=== PATIENT | female | born 1955 | race Caucasian/White ===

== ENCOUNTER → 2017-09-04 | Outpatient (CLI) | payer SELFPAY ==
[~2017-09-04] MED LIST: ALBU90OI INH; ALPR.5 PO; AMLO10 PO; ASCO1ER PO; ASPI81EC; ASPI81EC PO; AZIT250 PO; AZOR PO; BUDE200IP INH; Bystolic10 MG PO; CLON.1 PO; CLON.3 PO; CLON.5 PO; CYAN100 PO; FEXO180 PO; FISH1000 PO; FLUO20 PO; HYDACE5 PO; HYDACE5325 PO; LISI5 PO; LORA.5 PO; LOSA50 PO; METO50 PO; MULVITMINE PO; NITRSPRAY SL; PARO20 PO; PROP60; PROP80ER PO; RAMI5; RANI150; RXCLIN PO; SULTRIDS PO; TOLT4 PO; VERA240ER
[2017-09-04 13:29] LABS: Anion Gap 6 mmol/L (6-16); Blood Urea Nitrogen 13 mg/dL (8-24); Bun/Creatinine Ratio 20.7 (12.0-20.0); CO2, Blood 27 mmol/L (21-32); Calcium, Blood 9.9 mg/dL (8.5-10.1); Chloride, Blood 110 mmol/L (98-108); Creatinine, Blood 0.63 mg/dL (0.40-1.00); Glomerular Filtration Rate >60 (60-); Glucose, Blood 89 mg/dL (70-99); Potassium, Blood 4.1 mmol/L (3.5-5.5); Sodium, Blood 143 mmol/L (136-145)
== END | disposition home or self-care (01) ==
LOC: LAB SHORT 10:56 → LAB 10:56
PROVIDERS: Internal Medicine Hematology & Oncology
DX: C50.411 Malignant neoplasm of upper-outer quadrant of right female breast (principal); M85.80 Other specified disorders of bone density and structure, unspecified site; Z17.0 Estrogen receptor positive status [ER+]; Z79.811 Long term (current) use of aromatase inhibitors; Z79.83 Long term (current) use of bisphosphonates
CPT/HCPCS: 80048

== ENCOUNTER 2018-07-16 19:59 | Emergency (ER) | payer OTHER ==
[~2018-07-16] VITALS: Ht 167.6 cm; Wt 81.7 kg
[2018-07-16] MEDS ORDERED: ANAS1 PO (20:22)
[2018-07-16] MEDS ORDERED: MONT10T (20:22)
[2018-07-16] MEDS ORDERED: Percocet 5-3251 EACH PO (23:20)
[2018-07-16] MEDS ORDERED: IBUP400 PO (23:20)
== END 2018-07-17 00:21 | disposition home or self-care (01) ==
LOC: ER 19:59
DX: S52.531A Colles' fracture of right radius, initial encounter for closed fracture (principal); I10 Essential (primary) hypertension; F17.200 Nicotine dependence, unspecified, uncomplicated; Z88.5 Allergy status to narcotic agent; Z91.013 Allergy to seafood; Z88.8 Allergy status to other drugs, medicaments and biological substances; Z79.899 Other long term (current) drug therapy; W00.0XXA Fall on same level due to ice and snow, initial encounter
CPT/HCPCS: 73090; 76000; J7030

== ENCOUNTER 2018-07-19 10:47 | Day surgery (SDC) | payer OTHER ==
[~2018-07-19] VITALS: Ht 167.6 cm; Wt 81.7 kg
[~2018-07-19 10:47] MED LIST changes: +ANAS1 PO; +IBUP400 PO; +MONT10T; +Percocet 5-3251 EACH PO
--- NOTE | 2018-07-19 12:10 | NUR ---
History, Chart, Medications and Allergies reviewed before start of procedure. LUNGS DECREASED IN BASES, CLEARS WITH COUGH. Patient States Post-Procedure ride home has been arranged.
--- NOTE | 2018-07-19 16:13 | NUR ---
Patient States Post-Procedure ride home has been arranged. Discharge instructions reviewed with patient. Patient verbalizes understanding. Copy given to patient to take home.
== END 2018-07-19 16:19 | disposition home or self-care (01) ==
LOC: ORSCMMR 10:47
PROVIDERS: Orthopaedic Surgery
PROC: 0PSH04Z Reposition Right Radius with Internal Fixation Device, Open Approach (ICD-10-PCS; principal; 2018-07-19 12:30)
DX: S52.502A Unspecified fracture of the lower end of left radius, initial encounter for closed fracture (principal); W18.30XA Fall on same level, unspecified, initial encounter; I10 Essential (primary) hypertension; J44.9 Chronic obstructive pulmonary disease, unspecified; F17.210 Nicotine dependence, cigarettes, uncomplicated; F41.8 Other specified anxiety disorders; Z79.899 Other long term (current) drug therapy
CPT/HCPCS: C1713; J0690; J1100; J1885; J2250; J2405; J3010; J7120

== ENCOUNTER 2019-06-10 07:28 | Day surgery (SDC) | payer OTHER ==
[~2019-06-10] VITALS: Ht 170.2 cm; Wt 79.2 kg
[~2019-06-10 07:28] MED LIST changes: +ALLEGRA ALLERG180 MG; +Allegra-D 12 H1 EACH
--- NOTE | 2019-06-10 08:31 | NUR ---
Ambulatory in Day SurgeryPatient states colon prep results clear. History, Chart, Medications and Allergies reviewed before start of procedure.Lungs clear T/O to Auscultation. Pre-Op teaching done. Pt verbalizes understanding. Patient States Post-Procedure ride home has been arranged. PATIENT RECEIVED A TAP WATER TAB PER DR. LA.
--- NOTE | 2019-06-10 08:41 | NUR ---
06/10/19 0841 Karo Downey History, Chart, Medications and Allergies reviewed before start of procedure. Patient confirms NPO status and agrees with scheduled surgery. PATIENT DETERMINED TO BE ASA APPROPRIATE FOR PROPOFOL SEDATION PRIOR TO START OF PROCEDURE BY DR. LA. 3-LEAD EKG REVIEWED WITH PHYSICIAN PRIOR TO START OF PROCEDURE. MONITOR INTACT WITH CONTINUOUS PULSE OXIMETRY AND INTERMITTENT BP.
== END 2019-06-10 09:34 | disposition home or self-care (01) ==
LOC: ORSCMMR 07:28 → ORD 08:30 → ORSCMMR 09:34
PROVIDERS: Internal Medicine Gastroenterology
PROC: 0DBN8ZX Excision of Sigmoid Colon, Via Natural or Artificial Opening Endoscopic, Diagnostic (ICD-10-PCS; principal; 2019-06-10 08:30)
PROC: 0DBM8ZX Excision of Descending Colon, Via Natural or Artificial Opening Endoscopic, Diagnostic (ICD-10-PCS; principal; 2019-06-10 08:30)
DX: Z12.11 Encounter for screening for malignant neoplasm of colon (principal); Z86.010 Personal history of colon polyps; K63.5 Polyp of colon; K64.8 Other hemorrhoids; J44.9 Chronic obstructive pulmonary disease, unspecified; I10 Essential (primary) hypertension; Z79.899 Other long term (current) drug therapy; F17.210 Nicotine dependence, cigarettes, uncomplicated
CPT/HCPCS: 88305; J2704; J7120

== ENCOUNTER → 2021-02-11 | Outpatient (CLI) | payer MEDICARE ==
[2021-02-11 12:21] LABS: BASOPHILS ABSOLUTE AUTO 0.01 K/mm3 (0.00-0.23); BASOPHILS PERCENT AUTO 0 % (0-2); EOSINOPHILS PERCENT AUTO 0 % (0-6); Hematocrit 41.5 % (33.0-51.0); Hemoglobin 14.4 g/dL (11.5-16.0); IMMATURE GRAN ABSOLUTE AUTO 0.08 K/mm3 (0.00-0.10); IMMATURE GRAN PERCENT AUTO 1 % (0-1); LYMPHOCYTES ABSOLUTE AUTO 0.76 K/mm3 (0.84-5.20); LYMPHOCYTES PERCENT AUTO 9 % (21-46); MONOCYTES ABSOLUTE AUTO 0.37 K/mm3 (0.16-1.47); MONOCYTES PERCENT AUTO 4 % (4-13); Mean Corpuscular HGB 31.1 pg (26.0-34.0); Mean Corpuscular HGB Conc 34.7 g/dL (31.5-36.5); Mean Corpuscular Volume 90 fL (80-100); Mean Platelet Volume 10.6 fL (9.1-12.4); NEUTROPHILS ABSOLUTE AUTO 7.57 K/mm3 (1.96-9.15); NEUTROPHILS PERCENT AUTO 86 % (41-73); Platelet Count 266 K/mm3 (150-400); RDW Coefficient Variation 13.4 % (11.7-14.2); RDW Standard Deviation 43.9 fL (35.1-46.3); Red Blood Cell Count 4.63 M/mm3 (3.80-5.20); White Blood Cell Count 8.79 K/mm3 (4.00-11.30)
[2021-02-11 12:31] LABS: Alanine Aminotransfer (ALT/SGP 49 U/L (12-78); Albumin, Blood 3.2 g/dL (3.4-5.0); Albumin/Globulin Ratio 0.7 (0.8-1.8); Alk Phos 99 U/L (40-126); Anion Gap 16 mmol/L (6-16); Aspartate Aminotrans (AST/SGOT 50 U/L (12-37); Bilirubin, Total 0.3 mg/dL (0.1-1.0); Blood Urea Nitrogen 13 mg/dL (8-24); Bun/Creatinine Ratio 14.6 (12.0-20.0); CO2, Blood 22 mmol/L (21-32); Calcium, Blood 8.5 mg/dL (8.5-10.1); Chloride, Blood 101 mmol/L (98-108); Creatinine, Blood 0.89 mg/dL (0.40-1.00); Globulin, Blood 4.3 g/dL (2.2-4.0); Glomerular Filtration Rate >60 (60-); Glucose, Blood 105 mg/dL (70-99); Potassium, Blood 3.7 mmol/L (3.5-5.5); Sodium, Blood 139 mmol/L (136-145); Total Protein, Blood 7.5 g/dL (6.4-8.2)
== END | disposition home or self-care (01) ==
LOC: LAB 12:16 → LAB SHORT 12:16
PROVIDERS: Physician Assistant
DX: U07.1 COVID-19 (principal); R09.02 Hypoxemia
CPT/HCPCS: 80053; 85025; 85379

== ENCOUNTER → 2024-12-18 | Outpatient (CLI) | payer MEDICARE, OTHER ==
[~2024-12-18] MED LIST changes: -ALLEGRA ALLERG180 MG; +ALLEGRA ALLERG180 MG PO; +ASPI81CH PO; +ATOR40TA PO; -Allegra-D 12 H1 EACH; +CLOP75 PO; +CVS ALLERGY RL1 EAC1 PO; +GABA800 PO; +Hydrochlorothia50 MG PO; +MASOPHEN325 M4 PO; +TOPI25 PO
[2024-12-18 20:39] LABS: Campylobacter Sp Not Detected (NOT DETECT); E. Coli O157 Not Detected (NOT DETECT); Enteroaggregative E. coli-EAEC Not Detected (NOT DETECT); Enteropathogenic E. coli-EPEC Not Detected (NOT DETECT); Enterotoxigenic E. coli-ETEC Not Detected (NOT DETECT); Salmonella Sp Not Detected (NOT DETECT); Shiga Toxin-prod E. coli-STEC Not Detected (NOT DETECT); Shigella/Enteroin E. coli-EIEC Not Detected (NOT DETECT); Vibrio Sp Not Detected (NOT DETECT)
== END | disposition home or self-care (01) ==
LOC: LAB 14:50 → LAB SHORT 14:50 → LAB FUT 12-12 13:45
PROVIDERS: Internal Medicine Gastroenterology
DX: R19.7 Diarrhea, unspecified (principal)
CPT/HCPCS: 87507

== ENCOUNTER 2025-03-01 14:29 | Observation (INO) | payer MEDICARE, OTHER ==
[~2025-03-01] VITALS: Ht 167.6 cm; Wt 76.3 kg
[2025-03-01] MEDS ORDERED: NS 1,000 ML IV SCH ×2 (14:35→18:35)
[2025-03-01 14:56] LABS: Source, Urine Clean Catch
[2025-03-01] MEDS ORDERED: Diazepam 5 MG / ML 2ML SYR IV ONE (15:00)
[2025-03-01 15:04] LABS: Bilirubin, Urine Neg (Neg); Glucose Qualitative, Urine Neg (Neg); Ketones, Urine Neg (Neg); Leukocyte Esterase, Urine Neg (Neg); Protein, Urine Neg (Neg); Specific Gravity, Urine 1.005 (1.003-1.022); Urobilinogen, Urine NORM (Normal)
[2025-03-01 15:05] LABS: BASOPHILS ABSOLUTE AUTO 0.05 K/mm3 (0.00-0.23); BASOPHILS PERCENT AUTO 1 % (0-2); EOSINOPHILS ABSOLUTE AUTO 0.13 K/mm3 (0.00-0.68); EOSINOPHILS PERCENT AUTO 2 % (0-6); Hematocrit 40.3 % (33.0-51.0); Hemoglobin 13.4 g/dL (11.5-16.0); IMMATURE GRAN ABSOLUTE AUTO 0.01 K/mm3 (0.00-0.10); IMMATURE GRAN PERCENT AUTO 0 % (0-1); LYMPHOCYTES ABSOLUTE AUTO 0.81 K/mm3 (0.84-5.20); LYMPHOCYTES PERCENT AUTO 10 % (21-46); MONOCYTES ABSOLUTE AUTO 0.57 K/mm3 (0.16-1.47); MONOCYTES PERCENT AUTO 7 % (4-13); Mean Corpuscular HGB Conc 33.3 g/dL (31.5-36.5); Mean Corpuscular Volume 87 fL (80-100); NEUTROPHILS ABSOLUTE AUTO 6.45 K/mm3 (1.96-9.15); NEUTROPHILS PERCENT AUTO 81 % (41-73); NRBC ABSOLUTE 0.00 K/mm3 (0.00-0.02); NRBC Auto 0.0 /100 WBC (0.0-0.2); Platelet Count 329 K/mm3 (150-400); RDW Coefficient Variation 17.9 % (11.7-14.2); RDW Standard Deviation 57.1 fL (35.1-46.3)
[2025-03-01 15:16] LABS: Color, Urine Pale Yellow (P-Yellow)
[2025-03-01 15:50] LABS: Anion Gap 7.0 mmol/L (3-11); Blood Urea Nitrogen 11.0 mg/dL (8-24); CO2, Blood 24.0 mmol/L (21-32); Calcium, Blood 8.7 mg/dL (8.5-10.1); Chloride, Blood 112.0 mmol/L (98-108); Creatinine, Blood 0.6 mg/dL (0.40-1.00); Glucose, Blood 119.0 mg/dL (70-99); Magnesium, Blood 2.0 mg/dL (1.6-2.4); Potassium, Blood 3.2 mmol/L (3.5-5.5); Sodium, Blood 140.0 mmol/L (136-145); Thyroid Stimulating Hormone 0.016 uIU/mL (0.360-4.800)
[2025-03-01] MEDS ORDERED: Prochlorperazine Edisylate 10 mg Vial IV ONE (17:45)
[2025-03-01] MEDS ORDERED: FLU VACC TS2025(65UP)/MF59C/PF 45 MCG/0.5 ML SYRINGE IM SCH (18:35)
[2025-03-01] MEDS ORDERED: Metoclopramide HCl 5MG / ML 2ML Vial IV PRN (18:35)
[2025-03-01] MEDS ORDERED: Albuterol 2.5 MG/3 ML VIAL INH PRN (18:45)
[2025-03-01 21:49] VITALS: BP 141/73
[2025-03-02 00:07] VITALS: BP 151/91
--- NOTE | 2025-03-02 02:19 | NUR ---
MD NOTIFICATION NOTE: ROUND ON PATIENT, REPORTS HEADACHE 12/28. PATIENT STATED "I USUALLY TAKES TOMAPAX AT HOME, BUT IT DOES NOT LAST, SEEMS NOT BEEN WORKING LATELY." PATIENT RECEIVED HER TOMAPAX SCHEDULED DOSE AT 2211. NOTIFIED DR[address] CASA velásquez THIS CONCERN. RECEIVED ORDER TO GIVE TYLENOL 650 MG PO EVERY SIX HRS FOR PAIN.
[2025-03-02 04:24] VITALS: BP 124/68
--- NOTE | 2025-03-02 04:52 | NUR ---
SHIFT SUMMARY: PATIENT A/OX4, PLEASANT AND COOPERATIVE c CARE, CALLS APPROPRIATELY AND MAKE NEEDS KNOWN. PATIENT DENIES CP/PRESSURE, DIZZINESS, SOB, N/V. PATIENT MEDICATED FOR HEADACHE PER EMAR c MOD EFFECT. PATIENT ON TELE, SR IN 80'S c OCCASIONAL PVC. PATIENT RECEIVED OT DOSE PO POTASSIUM AND 1L OF NS PER ORDER. PATIENT CONTINENT OF BLADDER, AMBULATES TO BATHROOM c SBA. VITAL SIGNS REVIEWED. BED IN LOWEST POSITION. CALL LIGHT IN REACH.
[2025-03-02 05:14] LABS: Hematocrit 36.4 % (33.0-51.0); Hemoglobin 11.8 g/dL (11.5-16.0); Mean Corpuscular HGB Conc 32.4 g/dL (31.5-36.5); Mean Corpuscular Volume 88 fL (80-100); NRBC ABSOLUTE 0.00 K/mm3 (0.00-0.02); NRBC Auto 0.0 /100 WBC (0.0-0.2); Platelet Count 273 K/mm3 (150-400); RDW Coefficient Variation 18.0 % (11.7-14.2); RDW Standard Deviation 58.1 fL (35.1-46.3)
[2025-03-02 05:38] LABS: Anion Gap 9.0 mmol/L (3-11); Blood Urea Nitrogen 9.0 mg/dL (8-24); CO2, Blood 20.0 mmol/L (21-32); Calcium, Blood 8.3 mg/dL (8.5-10.1); Chloride, Blood 114.0 mmol/L (98-108); Creatinine, Blood 0.53 mg/dL (0.40-1.00); Glucose, Blood 119.0 mg/dL (70-99); Potassium, Blood 3.6 mmol/L (3.5-5.5); Sodium, Blood 139.0 mmol/L (136-145)
[2025-03-02 07:25] VITALS: BP 140/72
--- NOTE | 2025-03-02 07:28 | NUR ---
RECEIVED REPORT FROM NIGHT NURSE, ASSUMING CARE OF PATIENT AT THIS TIME. PATIENT RESTING IN BED, DENIES NEEDS AT THIS TIME
[2025-03-02] MEDS ORDERED: Enoxaparin 40 MG/0.4 ML SYR SC SCH (09:00)
[2025-03-02] MEDS ORDERED: Metoclopramide HCl 5MG / ML 2ML Vial IV STA (12:15)
[2025-03-02 14:38] VITALS: BP 150/86
[2025-03-02] MEDS ORDERED: Ketorolac Tromethamine 30mg Vial IV ONE (15:00)
--- NOTE | 2025-03-02 18:38 | NUR ---
END OF SHIFT PATIENT IND IN ROOM, ABLE TO MAKE NEEDS KNOWN, A&OX4. PATIENT TO MRI AT 1840, PLAN DC TOMORROW. HEADACHE TODAY, TORADOL HELPED. PATIENT HAD FAMILY AT BEDSIDE, DISCUSSED PLAN, DENIES NEEDS AT THIS TIME,
[2025-03-02 19:24] VITALS: BP 146/83
[2025-03-02 23:44] VITALS: BP 141/81
[2025-03-03 03:33] VITALS: BP 155/80
--- NOTE | 2025-03-03 04:27 | NUR ---
SHIFT SUMMARY PT A&OX4. ABLE TO MAKE NEEDS KNOWN. RESTED COMFORTABLY IN BED THROUGHOUT THE NIGHT. DENIES SOB OR DIZZINESS AT REST. CURRENTLY RESTING IN BED AT LOWEST POSITION WITH CALL LIGHT WITHIN REACH.
[2025-03-03 07:16] VITALS: BP 147/88
[2025-03-03] MEDS ORDERED: Ketorolac Tromethamine 30mg Vial IV ONE (09:55)
[2025-03-03] MEDS ORDERED: DRAMAMINE25 M1 PO (11:57)
[2025-03-03] MEDS ORDERED: METO5A PO (11:58)
--- NOTE | 2025-03-03 14:03 | NUR ---
DISCHARGE NOTE PATIENT DISCHARGE HOME WITH DAUGHTER, WHO SHE LIVES WITH. D/C MEDICATIONS AND INSTRUCTIONS DISCUSSED WITH FAMILY AND PATIENT. THEY VERBALIZED UNDERSTANDING. IV D/C'D. PATIENT TAKEN OUT BY WHEEL CHAIR TO FAMILY.
== END 2025-03-03 14:09 | disposition home or self-care (01) ==
LOC: ER 14:29 → MEDS 14:30 → ERHOLD 14:30 → MEDS 21:41
PROVIDERS: Emergency Medicine; Nurse Practitioner Acute Care; ADMIT Internal Medicine
DX: R42 Dizziness and giddiness (principal); J44.9 Chronic obstructive pulmonary disease, unspecified; I10 Essential (primary) hypertension; E78.5 Hyperlipidemia, unspecified; E87.6 Hypokalemia; I65.22 Occlusion and stenosis of left carotid artery; G43.909 Migraine, unspecified, not intractable, without status migrainosus; Z88.5 Allergy status to narcotic agent; Z91.0120 Allergy to eggs, unspecified; Z91.013 Allergy to seafood; Z91.018 Allergy to other foods
CPT/HCPCS: 36415; 70450; 70496; 70498; 70551; 71045; 80048; 81003; 82607; 83735; 84439; 84443; 85025; 85027; 93005; 93010; 94760; 96361; 96372; 96374-59; 96375; 96375-59; 96376; 97112; 97116; 97162; 97166; 97530; 99285-25; A9270; G0378; J0780; J1650; J1885; J2765; J3360; J7030; Q9967

== ENCOUNTER 2025-04-30 11:06 | Emergency (ER) | payer OTHER ==
[~2025-04-30] VITALS: Ht 167.6 cm; Wt 77.1 kg
[~2025-04-30 11:06] MED LIST changes: +DRAMAMINE25 M1 PO; +METO5A PO
[2025-04-30] MEDS ORDERED: PAROXETINE 10 MG (11:16)
[2025-04-30] MEDS ORDERED: OXYCODONE-ACET1 EAC3 (11:16)
[2025-04-30] MEDS ORDERED: NS 1,000 ML IV SCH (11:35)
[2025-04-30 11:47] LABS: BASOPHILS ABSOLUTE AUTO 0.06 K/mm3 (0.00-0.23); BASOPHILS PERCENT AUTO 1 % (0-2); EOSINOPHILS ABSOLUTE AUTO 0.29 K/mm3 (0.00-0.68); EOSINOPHILS PERCENT AUTO 6 % (0-6); Hematocrit 39.4 % (33.0-51.0); Hemoglobin 13.2 g/dL (11.5-16.0); IMMATURE GRAN ABSOLUTE AUTO 0.01 K/mm3 (0.00-0.10); IMMATURE GRAN PERCENT AUTO 0 % (0-1); LYMPHOCYTES ABSOLUTE AUTO 1.17 K/mm3 (0.84-5.20); LYMPHOCYTES PERCENT AUTO 22 % (21-46); MONOCYTES ABSOLUTE AUTO 0.45 K/mm3 (0.16-1.47); MONOCYTES PERCENT AUTO 9 % (4-13); Mean Corpuscular HGB Conc 33.5 g/dL (31.5-36.5); Mean Corpuscular Volume 91 fL (80-100); NEUTROPHILS ABSOLUTE AUTO 3.25 K/mm3 (1.96-9.15); NEUTROPHILS PERCENT AUTO 62 % (41-73); NRBC ABSOLUTE 0.00 K/mm3 (0.00-0.02); NRBC Auto 0.0 /100 WBC (0.0-0.2); Platelet Count 330 K/mm3 (150-400); RDW Coefficient Variation 14.0 % (11.7-14.2); RDW Standard Deviation 47.5 fL (35.1-46.3)
[2025-04-30 11:56] LABS: Alanine Aminotransfer (ALT/SGP 40.0 U/L (12-78); Albumin, Blood 3.6 g/dL (3.4-5.0); Albumin/Globulin Ratio 1.2 (0.8-1.8); Anion Gap 8.0 mmol/L (3-11); Aspartate Aminotrans (AST/SGOT 34.0 U/L (12-37); Bilirubin, Total 0.4 mg/dL (0.1-1.0); Blood Urea Nitrogen 11.0 mg/dL (8-24); CO2, Blood 21.0 mmol/L (21-32); Calcium, Blood 8.7 mg/dL (8.5-10.1); Chloride, Blood 113.0 mmol/L (98-108); Creatinine, Blood 0.69 mg/dL (0.40-1.00); Globulin, Blood 3.0 g/dL (2.2-4.0); Glucose, Blood 96.0 mg/dL (70-99); Potassium, Blood 4.0 mmol/L (3.5-5.5); Sodium, Blood 138.0 mmol/L (136-145); Total Protein, Blood 6.6 g/dL (6.4-8.2)
[2025-04-30 13:15] VITALS: BP 146/83
[2025-04-30 13:18] LABS: Influenza A, PCR NEGATIVE (NEGATIVE); Influenza B, PCR NEGATIVE (NEGATIVE); Resp Syncytial Virus, PCR NEGATIVE (NEGATIVE); SARS-Cov-2 (COVID-19) PCR, MMC NEGATIVE (NEGATIVE)
[2025-05-04] MEDS ORDERED: SUPHEDRINE30 MG PO (10:35)
[2025-05-04] MEDS ORDERED: OXYC5 PO (10:38)
== END 2025-04-30 14:05 | disposition home or self-care (01) ==
LOC: ER 11:06
PROVIDERS: Emergency Medicine
DX: R29.810 Facial weakness (principal); Z91.013 Allergy to seafood; Z88.5 Allergy status to narcotic agent; Z91.0120 Allergy to eggs, unspecified; Z88.8 Allergy status to other drugs, medicaments and biological substances
CPT/HCPCS: 70450; 71046; 80053; 85025; 87637; 93005; 93010; 99285-25; A9270; J7030